=== PATIENT | male | born 1985 | race American Indian/Alaskan Native ===

== ENCOUNTER 2017-09-27 21:42 | Emergency (ER) | payer MEDICAID ==
[2017-09-27 22:00] VITALS: BP 136/94
[2017-09-27 22:34] LABS: Basophils # (Auto) 0.1 K/mm3 (0.0-0.1); Basophils % (Auto) 0.7 % (0.0-1.8); Eosinophils % (Auto) 0.4 % (0.0-4.3); Hemoglobin 15.8 gm/dl (11.8-15.2); Lymphocytes # (Auto) 0.9 K/mm3 (1.2-5.4); Lymphocytes % (Auto) 11.6 % (13.4-35.0); Mean Corpuscular HGB Conc 34 % (32-34); Mean Corpuscular Hemoglobin 28 pg (28-32); Mean Corpuscular Volume 84 fl (84-94); Monocytes # (Auto) 0.6 K/mm3 (0.0-0.8); Monocytes % (Auto) 7.2 % (0.0-7.3); Platelet Count 314 K/mm3 (140-440); Red Blood Count 5.61 M/mm3 (3.65-5.03); Red Cell Distribution Width 13.7 % (13.2-15.2)
[2017-09-27 22:44] LABS: BUN/Creatinine Ratio 12; Blood Urea Nitrogen 11 mg/dL (9-20); Calcium 9.3 mg/dL (8.4-10.2); Hemolysis Index 24
== END 2017-09-28 04:00 | disposition left against medical advice (07) ==
LOC: ED 21:42
DX: R42 Dizziness and giddiness (principal); Z53.21 Procedure and treatment not carried out due to patient leaving prior to being seen by health care provider
CPT/HCPCS: 36415; 80048; 85025; 93005; 93010

== ENCOUNTER 2019-10-24 09:24 | Day surgery (SDC) | payer MEDICAID ==
--- NOTE | 2019-10-24 10:34 | Anesthesia Consultation ---
Anesthesia Consult and Med Hx Date of service: 10/24/19 - Airway Anesthetic Teeth Evaluation: Poor (crowded teeth, underbite, misaligned teeth) ROM Head & Neck: Adequate Mental/Hyoid Distance: Adequate Mallampati Class: Class III Intubation Access Assessment: Possibly Difficult - Pre-Operative Health Status ASA Pre-Surgery Classification: ASA2 Proposed Anesthetic Plan: MAC - Central Nervous System Hx Psychiatric Problems: Yes (anxiety; slow to respond in conversation and becomes figitty; Depression) - Gastrointestinal Hx Ulcer: No (Crohn's disease)
--- NOTE | 2019-10-24 10:35 | Anesthesia Day of Surgery ---
Anesthesia Day of Surgery - Day of Surgery Patient Examined: Yes Patient H&P Reviewed: Yes Patient is NPO: Yes
[2019-10-24] MEDS: SODIUM CHLORIDE 0.9% 1000 ML 1,000 ML IV SCH ×2 (10:38→13:27)
[2019-10-24] MEDS ORDERED: LIDOCAINE MPF (2%) 20 MG/1 ML VIAL 5 ML ONE (11:30)
[2019-10-24] MEDS ORDERED: propofoL 200 MG/20 ML VIAL IV ONE ×2 (12:07)
--- NOTE | 2019-10-24 12:54 | Discharge Summary ---
Short Stay Discharge Plan Activity: advance as tolerated Weight Bearing Status: Weight Bear as Tolerated Diet: regular Follow up with: VESNA RAMON MD [Primary Care Provider] - 7 Days
--- NOTE | 2019-10-24 12:54 | Operative Report ---
Operative Report Operative Report: Colonoscopy with biopsies. DATE: 10/24/2019 ATTENDING PHYSICIAN: Olvin Hartman M.D. LUNCH WAGON OPERATOR: Olvin Hartman M.D. INDICATIONS: Patient is a 34y.o. male who presents with a history of Crohn's disease. Recently patient has had increasing abdominal pain and change in bowel habits. A colonoscopy is done to evaluate patient so that treatment may be directed based on the findings. CONSENT: Informed consent was obtained after the patient was advised regarding the nature of this procedure, its indications, potential benefits as well as possible complications including but not limited to bleeding, perforation, adverse reaction to medications, infection as well as cardiopulmonary complications. An informed written and verbal consent was then obtained after due opportunity was provided for questions and answers. MONITORING: Patient monitored continuously with pulse oximetry, electrocardiographic recordings as well as automatic blood pressure recordings. Patient remained stable throughout the procedure with no untoward events. PREOPERATIVE ASSESSMENT: Patient was assessed immediately prior to this procedure for capacity to tolerate moderate sedation/monitored anesthesia care. [place] [employer] classification is 2. Mallampati class is 2. Hyomental distance is 3. INSTRUMENT: Olympus video colonoscope [id number]. MEDICATIONS: Propofol given intravenously in divided doses. For details, please refer to anesthesia records. DESCRIPTION OF PROCEDURE: Patient was placed in the left lateral decubitus position, after achieving sedation, a digital rectal examination was performed following which the colonoscope was introduced into the anal verge and advanced under direct visualization to the ascending colon where patient was noted to have a focal area of stricture formation and also areas of ulceration with significant mucosal changes. The colonoscope could not be advanced beyond this point. Therefore, the colonoscope was then gently withdrawn with careful inspection of all mucosa surfaces. The patient tolerated the procedure well with no complications. After completion of the examination, patient was transferred to the recovery room. The prep written regimen was GoLYTELY and the preparation was fair. The following findings were noted. FINDINGS: Patient had focal areas of ulceration involving the transverse colon where there was significant mucosal changes, hepatic flexure the mid and proximal ascending colon. Biopsies were obtained from the proximal ascending colon, hepatic flexure, the transverse colon as well as the sigmoid colon. In the sigmoid colon, the mucosal pattern appeared grossly normal except for occasional areas of aphthous ulcer formation. There were areas of stricture formation seen in the transverse colon and hepatic flexure, which we are not luminally occluding. The stricture in the proximal ascending colon, was very constricting and could not be traversed. On the retroflexed view at the anal verge patient had internal hemorrhoids. IMPRESSION: Focal areas of ulceration involving multiple segments of the colon. Colonic stricture seen in the transverse colon and ascending colon. Severely constricting area of stricture formation in the proximal ascending colon Grossly normal-appearing sigmoid colon Internal Hemorrhoids . PLAN: Continue current treatment Follow pathology report We will consider beginning biologic therapy on patient. We will repeat colonoscopy hopefully within the next 6 to 12 months.
[2019-10-24 13:07] VITALS: BP 127/76
== END 2019-10-24 13:30 | disposition home or self-care (01) ==
LOC: GIO 09:24
PROVIDERS: ATTEND Internal Medicine Gastroenterology
DX: R10.84 Generalized abdominal pain (principal); K50.90 Crohn's disease, unspecified, without complications; R19.4 Change in bowel habit; K52.89 Other specified noninfective gastroenteritis and colitis; K64.8 Other hemorrhoids; F32.9 Major depressive disorder, single episode, unspecified; F41.9 Anxiety disorder, unspecified; Z98.890 Other specified postprocedural states; Z79.899 Other long term (current) drug therapy
CPT/HCPCS: 45380; 88305; J2704; J7030